=== PATIENT | female | born 1965 | race Caucasian/White ===

== ENCOUNTER 2017-04-14 05:37 | Emergency (ER) | payer MEDICARE, OTHER ==
[~2017-04-14] VITALS: Ht 167.6 cm; Wt 109.1 kg
[2017-04-14 05:58] LABS: GLUCOSE,POINT OF CARE 184 MG/DL (70-110)
[2017-04-14] MEDS ORDERED: PRED10 PO (06:09)
[2017-04-14] MEDS ORDERED: FURO20 PO (06:09)
[2017-04-14] MEDS ORDERED: ASPI-1213 PO (06:09)
[2017-04-14] MEDS ORDERED: NIFE10 PO (06:09)
[2017-04-14] MEDS ORDERED: TACR.5 PO (06:09)
[2017-04-14] MEDS ORDERED: CINA30 PO (06:09)
[2017-04-14] MEDS ORDERED: TACR1 PO (06:09)
[2017-04-14] MEDS ORDERED: SIMV-260 PO (06:09)
[2017-04-14] MEDS ORDERED: FLUO-191 PO (06:09)
[2017-04-14] MEDS ORDERED: METO25 PO (06:09)
[2017-04-14] MEDS ORDERED: INSNPH SQ ×2 (06:09)
[2017-04-14] MEDS ORDERED: MYCO250C7 PO (06:09)
[2017-04-14] MEDS ORDERED: INSREG SQ (06:09)
[2017-04-14] MEDS ORDERED: FAMO20 PO (06:09)
[2017-04-14 06:47] LABS: HEMATOCRIT 33.6 % (36-46); HEMOGLOBIN 11.1 g/dL (12.0-16.0); LYMPHOCYTES # (AUTO) 0.1 K/uL (1.0-4.8); LYMPHOCYTES % (AUTO) 5.7 % (22.0-44.0); MEAN CORPUSCULAR HEMOGLOBIN 27.6 pg (26.0-34.0); MEAN CORPUSCULAR HGB CONC 33.1 G/dL (31.0-37.0); MEAN CORPUSCULAR VOLUME 84 fL (80-100); MONOCYTES % (AUTO) 0.4 % (2.0-9.0); NEUTROPHILS # (AUTO) 1.9 K/uL (1.8-7.7); PLATELET COUNT (AUTO) 169 K/uL (150-450); RED BLOOD CELL COUNT(AUTO) 4.02 MIL/uL (4.00-5.20); RED CELL DISTRIBUTION WIDTH 16.2 % (11.5-14.5)
[2017-04-14 06:54] LABS: CALCIUM, TOTAL 9.4 mg/dL (8.8-10.5); CREATININE 2.03 mg/dL (0.60-1.30); POTASSIUM 3.6 mmol/L (3.5-5.1)
[2017-04-14 06:56] LABS: NEUTROPHILS % (AUTO) 93.9 % (40.0-70.0)
[2017-04-14 07:00] LABS: ALBUMIN 3.3 g/dL (3.4-5.0); BILIRUBIN,TOTAL 3.6 mg/dL (0.1-1.0); TOTAL PROTEIN, SERUM 6.6 g/dL (6.4-8.2)
[2017-04-14] MEDS ORDERED: ONDANSETRON HCL 4 MG/2 ML VIAL IVP ONE ×2 (07:30→10:45)
[2017-04-14] MEDS ORDERED: SODIUM CHLORIDE 0.9% 1,000 ML IV ONE (07:30)
[2017-04-14 11:22] VITALS: BP 151/83
== END 2017-04-14 11:29 | disposition short-term general hospital (02) ==
LOC: EDUNIT# 05:37 → EMS 05:39
DX: K80.20 Calculus of gallbladder without cholecystitis without obstruction (principal); N17.9 Acute kidney failure, unspecified; D72.819 Decreased white blood cell count, unspecified; R74.0 Nonspecific elevation of levels of transaminase and lactic acid dehydrogenase [LDH]; I10 Essential (primary) hypertension; E78.00 Pure hypercholesterolemia, unspecified; K21.9 Gastro-esophageal reflux disease without esophagitis; E11.9 Type 2 diabetes mellitus without complications; Z79.4 Long term (current) use of insulin; Z88.0 Allergy status to penicillin; Z88.1 Allergy status to other antibiotic agents; Z88.8 Allergy status to other drugs, medicaments and biological substances
CPT/HCPCS: 36415; 76705; 80053; 82150; 82962; 83690; 84484; 84703; 85025; 93005; 96374; 96376; 99285; J2405; J7030